=== PATIENT | female | born 1980 | race Hispanic/Latino ===

== ENCOUNTER 2018-07-07 20:01 | Emergency (ER) | payer SELFPAY ==
[~2018-07-07 20:01] MED LIST: NITR100C4 PO; PREN-114 PO
[2018-07-07] MEDS ORDERED: DEXAMETHASONE SOD PHOSPHATE 10MG/ML 1ML VIAL ONE (22:16)
[2018-07-07] MEDS ORDERED: FAMOTIDINE 20MG TAB 20 MG TAB ONE (22:16)
[2018-07-07] MEDS ORDERED: DIPHENHYDRAMINE HCL 25 MG CAPSULE ONE (22:17)
== END 2018-07-07 23:45 | disposition home or self-care (01) ==
LOC: EDH 20:01
DX: L25.9 Unspecified contact dermatitis, unspecified cause (principal)
CPT/HCPCS: 96372; 99283; J1100; Q0163